=== PATIENT | male | born 1965 | race Caucasian/White ===

== ENCOUNTER 2020-03-08 04:50 | Emergency (ER) | payer BC, SELFPAY ==
[2020-03-08 04:56] VITALS: BP 178/99; PULSE 71; RESP 22; TEMP 36.4; O2SAT 100
--- NOTE | 2020-03-08 05:12 | ED.DIZZY ---
HPI - Dizziness General Chief Complaint: Dizziness Stated Complaint: dizzy Time Seen by Provider: 03/08/20 05:01 History of Present Illness HPI Narrative: Dizziness throguhout the day today. intermittent. Worse with head movement. Better with remaining still with his eyes closed. Associated with nausea and vomiting. No tinnitus, ear pain, muffled hearing, weakness, numbness. Related Data Home Medications Medication Instructions Recorded Confirmed pravastatin 10 mg PO 03/08/20 Allergies Allergy/AdvReac Type Severity Reaction Status Date / Time No Known Allergies Allergy Unknown Unverified 11/08/17 03:33 Review of Systems Review of Systems: All systems reviewed & are unremarkable except as noted in HPI and below Constitutional: Constitutional: Denies chills, Denies fever(s) and Denies weakness ENT: Reports dizziness and Denies sore throat Cardiovascular: Cardiovascular: Denies chest pain Respiratory: Respiratory: Denies dyspnea Gastrointestinal: Gastrointestinal: Denies abdominal pain, Reports nausea and Reports vomiting Neurologic: Reports dizziness, Denies headache(s), Denies numbness and Denies weakness [facility] Social History Social History Gender identity (if verbalized by the patient): Male Exam Const: General: healthy appearing, no acute distress and alert Orientation/consciousness: patient oriented x3 HENMT: Head: normal to inspection Ears: TM's normal bilaterally and Abnormal EAC present Face and sinus: sinuses nontender Eyes: Pupils: Equal, round and reactive pupils present EOM: EOMs intact bilaterally Neck: Neck: normal visual inspection and no lymphadenopathy Chest: Chest palpation & inspection: no tenderness Resp: Effort & Inspection: normal respiratory effort Auscultation: clear to auscultation bilaterally, no rales, no rhonchi and no wheezes Cardio: Jugular venous distension: no JVD Rate: regular rate Rhythm: regular rhythm Heart sounds: no murmurs GI: Inspection: non-distended GI Palp: Yes Soft to palpation and No Tenderness to palpation present (GI) Skin: General skin exam: normal color Neuro: General: patient oriented x3 and moves all extremities Cranial nerves: Yes Nystagmus present horizontal Speech: normal speech Extrem: General: no edema Psych: Appearance: well kempt Affect: normal affect Course Vital Signs Vital signs: Vital Signs Temperature 36.4 C 03/08/20 04:56 Pulse Rate 71 08/07/20 04:56 Respiratory Rate 22 H 03/08/20 04:56 Blood Pressure 178/99 H 03/08/20 04:56 Pulse Oximetry 100 03/08/20 04:56 Temperature 36.9 C 03/08/20 06:40 Pulse Rate 92 03/08/20 06:40 Respiratory Rate 20 03/08/20 06:40 Blood Pressure 159/96 H 03/08/20 06:40 Pulse Oximetry 100 03/08/20 06:40 MDM - Dizziness MDM Narrative Medical decision making narrative: Presentation consistent with peripheral vertigo. Feeling better with symptomatic treatment Medical Records Attestation: I reviewed the patient's medical records. Lab Data Attestation: I reviewed the patient's lab results. Result diagrams: 03/08/20 05:34 03/08/20 05:34 Labs: Lab Results 03/08/20 03/08/20 Range/Units 05:34 05:34 WBC 12.9 H (4.5-10.0) K/mm3 RBC 5.08 (4.6-6.20) M/mm3 Hgb 15.3 (14.0-18.0) g/dL Hct 44.3 (42.0-52.0) % MCV 87.2 (80-100) fl MCH 30.1 (26-34) pg MCHC 34.5 (32-36) g/dl RDW 12.7 (11.5-14.5) % Plt Count 246 (150-375) k/mm3 MPV 9.0 (7.4-10.4) fl Immature Gran % (Auto) 1.3 H (0-0.5) % Neut % (Auto) 59.4 (45.5-73.1) % Lymph % (Auto) 31.1 (18.3-44.2) % Coos % (Auto) 4.9 (2.6-8.5) % Eos % (Auto) 2.6 (0-4.4) % Baso % (Auto) 0.7 (0.2-1.2) % Lymph # (Auto) 4.02 H (0.9-3.2) K/mm3 Coos # (Auto) 0.6 (0.1-0.6) K/mm3 Eos # (Auto) 0.3 (0-0.3) K/mm3 Baso # (Auto) 0.1 (0.0-0.1) K/mm3 Abs Immat Gran (auto
[2020-03-08] MEDS: SODIUM CHLORIDE 0.9% IV 1,000 ML 999 ML IV CONT (05:29)
[2020-03-08] MEDS: ONDANSETRON INJ 4 MG/2 ML VIAL IV PUSH (05:29)
[2020-03-08 05:51] LABS: Basophils Absolute Auto 0.1 K/mm3 (0.0-0.1); Basophils Percent Auto 0.7 % (0.2-1.2); Eosinophils Absolute Auto 0.3 K/mm3 (0-0.3); Eosinophils Percent Auto 2.6 % (0-4.4); Hematocrit 44.3 % (42.0-52.0); Hemoglobin 15.3 g/dL (14.0-18.0); Immature Granulocyte Absolute 0.17 K/mm3 (0.00-0.031); Immature Granulocyte Percent A 1.3 % (0-0.5); Lymphocytes Absolute Auto 4.02 K/mm3 (0.9-3.2); Lymphocytes Percent Auto 31.1 % (18.3-44.2); Mean Corpuscular HGB Conc 34.5 g/dl (32-36); Mean Corpuscular Hemoglobin 30.1 pg (26-34); Mean Corpuscular Volume 87.2 fl (80-100); Monocytes Absolute Auto 0.6 K/mm3 (0.1-0.6); Monocytes Percent Auto 4.9 % (2.6-8.5); Neutrophils Absolute Auto 7.7 K/mm3 (1.3-6.7); Neutrophils Percent Auto 59.4 % (45.5-73.1); Platelet Count Result 246 k/mm3 (150-375); Red Blood Count 5.08 M/mm3 (4.6-6.20); Red Cell Distribution Width 12.7 % (11.5-14.5); White Blood Count 12.9 K/mm3 (4.5-10.0)
[2020-03-08 06:03] LABS: Anion Gap 13.8 mmol/L (7-16); Blood Urea Nitrogen 14 mg/dL (9-20); Calcium 9.2 mg/dL (8.4-10.2); Carbon Dioxide 23 mmol/L (22-30); Chloride 105 mmol/L (98-107); Estimated CRCL calculation 97 ml/min; Estimated Glomerular Filt Rate > 60; Glucose 148 mg/dL (75-110); Potassium 3.8 mmol/L (3.4-5.0); Sodium 138 mmol/L (137-145)
[2020-03-08 06:40] VITALS: BP 159/96; PULSE 92; RESP 20; TEMP 36.9; O2SAT 100
== END 2020-03-08 06:41 | disposition home or self-care (01) ==
PROVIDERS: Emergency Provider Emergency Medicine; PCP Physician Assistant
DX: R42 Dizziness and giddiness (principal)
CPT/HCPCS: 36415; 80048; 85025; 96361; 96374; 96375; 99284; J2405; J3360; J7030

== ENCOUNTER 2020-03-22 08:13 | Outpatient (CLI) | payer BC, SELFPAY ==
--- NOTE | 2020-03-22 | ECHO_ITS ---
Patient Info Name: Chad Moreland Age: 54 years : 1965 Gender: Male Ht: 67 in Wt: 170 lbs BSA: 1.92 m2 HR: 75 bpm BP: 145 / 99 mmHg Heart Rhythm: Sinus Rhythm Technical Quality: Good Exam Date: 03/22/2020 9:05 AM Exam Location: [facility] Patient Status: Outpatient Admit Date: 03/22/2020 Staff Ordering Physician: ColetteJarred PA-C Pigment Pumper: Arturo Diez RDCS Attending Provider: ColetteJarred PA-C Exam Type: CA echo doppler color flow Study Info Indications R01.1 - Cardiac murmur, unspecified Complete two-dimensional, color flow and Doppler transthoracic echocardiogram is performed. History/Risk Factors Murmur. Summary 1. Left ventricular chamber dimension is normal. 2. Ventricular septum is sigmoid shaped. No resting LVOT obstruction. 3. There is moderate asymmetric septal increased left ventricular wall thickness with septal wall at 1.7 cm and posterior wall at 1.2 cm. Consider hypertrophic cardiomyopathy. 4. Left ventricular systolic function is normal, estimated at 65-70%. 5. The left ventricular diastolic function is grade I diastolic dysfunction. 6. E/e' 10 is mildly elevated. 7. Left atrial chamber dimension is mildly enlarged. 8. Mild systolic anterior motion of mitral valve. 9. There is mild mitral valve regurgitation. 10. There is trace pulmonic regurgitation. Left Ventricle E/e' 10 is mildly elevated. Ventricular septum is sigmoid shaped. No resting LVOT obstruction. There is moderate asymmetric septal increased left ventricular wall thickness with septal wall at 1.7 cm and posterior wall at 1.2 cm. Consider hypertrophic cardiomyopathy. Left ventricular chamber dimension is normal. Left ventricular systolic function is normal, estimated at 65-70%. The left ventricular diastolic function is grade I diastolic dysfunction. Right Ventricle Right ventricular chamber dimension is normal. Right ventricular systolic function is normal. Left Atria Left atrial chamber dimension is mildly enlarged. Right Atria Right atrial chamber dimension is normal. Aortic Valve The aortic valve is trileaflet. There is no aortic valve stenosis. There is no aortic valve regurgitation. Pulmonic Valve There is trace pulmonic regurgitation. Mitral Valve Mild systolic anterior motion of mitral valve. There is no mitral valve stenosis. There is mild mitral valve regurgitation. Tricuspid Valve There is no tricuspid valve regurgitation. Pericardium/Pleural There is no pericardial effusion. Inferior Vena Cava Normal inferior vena cava with >50% collapse upon inspiration consistent with normal right atrial pressure, 5 mmHg. Aorta The aortic root size at the sinus of Valsalva is normal. Left Ventricular Outflow Tract Name Value Normal LVOT 2D LVOT Diameter 2.0 cm LVOT Doppler LVOT Peak Gradient 7 mmHg LVOT Mean Gradient 4 mmHg LVOT VTI 33 cm LVOT VTI/AV VTI Ratio 1.1 LVOT Stroke Volume 106 ml
--- NOTE | ~2020-03-22 | US_ITS ---
EXAMINATION: US carotid duplex BI DATE: 03/22/2020 08:58 INDICATION: Carotid bruit. TECHNIQUE: Grayscale, color Doppler, and pulsed Doppler images of the cervical carotid arteries were obtained. The degree of vessel stenosis is placed in one of the following categories: normal, <50%, 5 0-69%, >=70% but less than near-occlusion, near-occlusion, or total occlusion. Note that percent sten osis relative to normal distal artery lumen diameter is indirectly measured from velocity measurement s as described by John, et al. Radiology 2003; 229:340-346. COMPARISON: None. FINDINGS: RIGHT: The right common carotid artery (CCA) peak systolic velocity (PSV) is 87 cm/s. The right internal car otid artery (ICA) PSV is 87 cm/s. The right ICA end-diastolic velocity (EDV) is 33 cm/s. The right IC A/CCA PSV ratio is 1.0. Grayscale and color Doppler images yield an estimate of <50% diameter reducti on from plaque in the ICA. There is antegrade flow in the right vertebral artery. LEFT: The left CCA PSV is 94 cm/s. The left ICA PSV is 71 cm/s. The left ICA EDV is 26 cm/s. The left ICA/C CA PSV ratio is 0.8. Grayscale and color Doppler images yield an estimate of <50% diameter reduction from plaque in the ICA. There is antegrade flow in the left vertebral artery. IMPRESSION: 1. <50% stenosis in the right internal carotid artery. 2. <50% stenosis in the left internal carotid artery. Reviewed, dictated and finalized at location A.
== END 2020-03-22 08:14 | disposition home or self-care (01) ==
LOC: ANHCARD 08:22
PROVIDERS: PCP Physician Assistant; Visit Provider Physician Assistant
DX: R01.1 Cardiac murmur, unspecified (principal); I65.23 Occlusion and stenosis of bilateral carotid arteries
CPT/HCPCS: 93306; 93880

== ENCOUNTER 2022-02-16 01:21 | Day surgery (SDC) | payer BC, SELFPAY ==
[2022-01-29 12:32] VITALS: BMI 27.6
[2022-02-16 08:10] VITALS: BP 144/92; PULSE 85; RESP 18; TEMP 36.5; O2SAT 98
[2022-02-16] MEDS: LACTATED RINGERS 1,000 ML 150 ML IV CONT (08:20)
--- NOTE | 2022-02-16 08:35 | P.PNAN_ITS ---
Anes - Initial Pre Proc Eval Procedure: Operation Date: 02/16/22 09:00 Proposed Procedures p Screening Colonoscopy - Bharath Heredia MD Date/Time: 02/16/22 08:35 Surgeon: Bharath Heredia MD Pre Op Diagnosis: neoplasm screening Patient Data Age: 56 Gender: M Height: 1.7 m Weight: 81.7 kg Last Vital Signs Temp 97.7 F 02/16/22 08:10 Pulse 85 02/16/22 08:10 Resp 18 02/16/22 08:10 BP 144/92 H 02/16/22 08:10 Pulse Ox 98 02/16/22 08:10 O2 Del Method Room Air 02/16/22 08:10 Allergies Allergy/AdvReac Type Severity Reaction Status Date / Time No Known Allergies Allergy Unknown Verified 02/16/22 08:08 Home Medications Medication Instructions Recorded Confirmed Type pravastatin 10 mg tablet 10 mg PO DAILY 03/08/20 01/29/22 History amlodipine 5 mg tablet 1 tablet PO DAILY 01/29/22 01/29/22 History Patient hx anesthesia problems: none Family hx anesthesia problems: none Results Review: All pre-operative results and documents have been reviewed as part of the pre- operative evaluation. [facility] Past Medical History Medical History (Updated 02/16/22 @ 08:37 by Bharath Heredia MD) Colon cancer screening Social History Social History Smoking status: Never smoker Alcohol intake: current Alcohol use details: socially Substance use: never Substance use type: does not use Living arrangements: with family Gender identity (if verbalized by the patient): Male Spiritual care concerns: No Anes - Eval Final PreProcedure Day of Procedure 02/16/22 08:35 Patient weight: normal Heart: regular rate and rhythm Lungs: clear to auscultation Neurological: alert and oriented Last oral intake: >/= 8 hours ASA classification: II Emergent: no Anesthetic plan: proceed Anesthesia type and monitoring: general GIVS and standard monitoring Results Review: All pre-operative results and documents have been reviewed as part of the pre- operative evaluation. Informed Consent: The patient's anesthetic plan and its attendant risks and benefits were discussed with the patient/family/POA. Questions were solicited and answers provided to the satisfaction of the patient/family/POA.
--- NOTE | 2022-02-16 08:37 | PM.HPGS ---
History of Present Illness History of Present Illness Consent: Risks, benefits, and alternatives have been discussed and questions answered. Patient agrees to proceed with procedure. Chief complaint: neoplasm screening Narrative: Chad Moreland is a 56 year old male here for screening colonoscopy, last one about 6-7 years ago Review of Systems Constitutional: Constitutional: Denies headache(s) and Denies weakness Eyes: Eyes: Denies blurry vision ENT: Reports Normal hearing present, Denies headache(s) and Denies neck pain Cardiovascular: Cardiovascular: Denies chest pain and Denies dyspnea Respiratory: Respiratory: Denies dyspnea Gastrointestinal: Gastrointestinal: Reports no additional gastrointestinal complaints Genitourinary: Genitourinary: Denies dysuria Musculoskeletal: Musculoskeletal: Denies neck pain Integumentary/Breasts: Skin/Breast: Denies dry skin Neurologic: Reports Normal hearing present, Denies headache(s) and Denies weakness Psychiatric: Psychiatric: Denies anxiety Endocrine: Endocrine: Denies change in body appearance Hematologic/Lymphatic: Hematologic/Lymphatic: Denies easy bleeding Allergic/Immunologic: Allergic/Immunologic: Denies urticaria PMF Past Medical History Medical History (Updated 02/16/22 @ 08:37 by Bharath Heredia MD) Colon cancer screening Social History Social History Smoking status: Never smoker Alcohol intake: current Alcohol use details: socially Substance use: never Substance use type: does not use Living arrangements: with family Gender identity (if verbalized by the patient): Male Spiritual care concerns: No Meds Home Medications and Allergies Home Medications Medication Instructions Recorded Confirmed Type pravastatin 10 mg tablet 10 mg PO DAILY 03/08/20 01/29/22 History amlodipine 5 mg tablet 1 tablet PO DAILY 01/29/22 01/29/22 History Allergies Allergy/AdvReac Type Severity Reaction Status Date / Time No Known Allergies Allergy Unknown Verified 02/16/22 08:08 Vital Signs Vital Signs - 24 hr 02/16/22 08:10 Temperature 97.7 F Pulse Rate 85 Respiratory Rate 18 Blood Pressure 144/92 H Pulse Oximetry 98 Oxygen Delivery Room Air Exam Const: General: comfortable and no acute distress HENMT: General nose exam: Normal nares present Eyes: General: appearance normal, both eyes and all related structures Neck: Neck: no JVD Resp: Auscultation: clear to auscultation bilaterally Cardio: Rate: regular rate Rhythm: regular rhythm GI: Inspection: non-distended GI Palp: Yes Soft to palpation Skin: General skin exam: normal color Neuro: General: gait normal Speech: normal speech Extrem: General: normal to inspection Psych: Mental Status: mental status grossly normal Assessment and Plan Assessment and plan (1) Colon cancer screening: Code(s): Z12.11 - Encounter for screening for malignant neoplasm of colon Status: Acute Assessment and Plan: colonoscopy
[2022-02-16 09:02] VITALS: BP 138/96; PULSE 71; RESP 25; O2SAT 93
[2022-02-16 09:12] VITALS: BP 137/82; PULSE 76; RESP 19; O2SAT 95
[2022-02-16 09:22] VITALS: BP 126/86; PULSE 77; RESP 16; O2SAT 96
== END 2022-02-16 09:30 | disposition home or self-care (01) ==
PROVIDERS: PCP Physician Assistant; Visit Provider Internal Medicine Gastroenterology
PROC: 0DJD8ZZ Inspection of Lower Intestinal Tract, Via Natural or Artificial Opening Endoscopic (ICD-10-PCS; CPT 45378; principal; 2022-02-16 09:00)
DX: Z12.11 Encounter for screening for malignant neoplasm of colon (principal); K57.30 Diverticulosis of large intestine without perforation or abscess without bleeding; K64.8 Other hemorrhoids
CPT/HCPCS: 99199; 45378; J2704; J7120

== ENCOUNTER 2025-05-30 09:27 | Outpatient (CLI) | payer BC, SELFPAY ==
--- NOTE | 2025-05-30 | ECG_ITS ---
Test Date: 2025-05-30 09:59:21 Measurements Intervals [place] Rate: 89 P: 50 [place]: 178 QRS: -20 QRSD: 106 T: 28 QT: 338 QTc: 412 Interpretive Statements SINUS RHYTHM DELAYED PRECORDIAL R/S TRANSITION POSSIBLE LEFT VENTRICULAR HYPERTROPHY MINIMAL Q WAVES- HIGH LATERAL LEADS BASELINE ARTIFACT- I, II, III, AVR, AVL, AVF BORDERLINE ECG No previous ECG available for comparison Electronically Signed On 05-30-2025 10:33:57 CDT by Sudhakar Swain D.O.
--- OUTSIDE RECORDS SUMMARY | 2025-05-30 10:26 | XMS_ITS | Encounter Summary ---
Author Organization [facility] Address [address] [place] [address] Phone Care Team Providers Care Air Cargo Ground Crew Supervisor Name Role Phone MaurisiobrianLenore Primary Care Pr ovider Heavenly Barnhart RN Unavailable UnavailLeanne Lopez Unavailable Unavailable Mariaelena Moore RN Unavailable Unavailable Reason for Referral * Cardiology (Routine) - Authorized Specialty Diagnoses / Procedures Referred By Contac t Referred To Contact Diagnoses Cardiomyopathy, hypertrophic (HCC) Procedures ECG 12 lead Ger Trejo MD PhD [id number] [address] Phone: tel: fax: External Order Referral ID Status Reason Start Date Expiration Date V isits Requested Visits Authorized [id number] Authorized 05/29/2025 06/28/2026 1 1 Encounter Details Date Type Department Care Team (Late st Contact Info) Description 05/28/2025 Telephone [facility] Medicine Cardiology [facility] Advanced Medicine [address]th [place] [address] [place] [address] Ger Trejo MD PhD [address] [facility] [address] [place], [place] [id number] Social History Tobacco Use Types Packs/Day Years Used Date Smoking Tobacco: Never Smokeless Tobacco: Never Alcohol Use Standard Drinks/Week Comments Yes 0 (1 standard drink = 0.6 oz pur e alcohol) occ Personal Safety Answer Date Recorded Have you ever been in or are you currently in a harmful physical or emotional relationship or is someone making you feel afraid or unsafe? 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 Trejo would like him to obtain walk-in EKG locally to evaluate cardiac rhythm. Patient agreeable to having EKG performed locally at [facility]. Spoke with [facility] who state that patient can obtain EKG M-F 8:30-3:30. Patient should enter at [facility] entrance and proceed to registration. Order faxed to [phone], per request and confirmation received. Explained above to patient and stated we will contact him once results are reviewed. Patient verbalized understanding and agreeable to plan. * Telephone Encounter - Leanne Julio - 05/29/2025 1:59 PM CDT Received call from pt needing to speak with nurse coordinator regarding: Returning call Patient needs a return call from the nurse coordinator. * Telephone Encounter - Heavenly Barnhart RN - 05/28/2025 12:42 PM CDT Spoke with patient who states that for approximately 2 weeks he has been experiencing near constantdizziness and fatigue. He states that this dizziness is not as severe as episodes of vertigo he hashad in the past, but still bothersome. BP running 140-150s/80-90s and HR 70s. He is taking all medications as prescribed including Camzyos 10 daily, metoprolol 50 daily and amlodipine 5 daily, he states that he has been maintaining adequate hydration, and his next Camzyos echo is due in August 2025. Explained we would discuss with Dr. Trejo and return call with recommendations. Patient verbalized understanding and agreeable to plan. * Telephone Encounter - Rowan Bob - 05/28/2025 11:07 AM CDT Pt returning call please call back * Telephone Encounter - Heavenly Barnhart RN - 05/28/2025 10:58 AM CDT LVM for patient requesting return call to discuss dizziness. * Telephone Encounter - Venita Matos - 05/28/2025 9:38 AM CDT Maya Pt having extreme dizziness. Pls call. documented in this encounter Plan of Treatment Scheduled Orders Name Type Priority Associated Diagnoses Orde r Schedule ECG 12 lead ECG Routine Cardiomyopathy, hypertrophic (HCC) 1 Occurrences starting 05/29/2025 until 05/29/2026 documented as of this encounter Visit Diagnoses Diagnosis Cardiomyopathy, hypertrophic (HCC)- Primary documented in this encounter Care Teams Air Cargo Ground Crew Supervisor Relationship Specialty Start Date End Date Lenore Alvarenga PA PCP - General Physician Behaviorist 01/27/17 Heavenly Barnhart, certified medical aide Failure Coordinator 11/24/23 Leanne Julio Primary Blasting Contract Miner 12/29/24 Mariaelena Moore RN Forming Machine Upkeep Mechanic Helper 12/29/24 documented as of this encounter
--- OUTSIDE RECORDS SUMMARY | 2025-05-30 10:26 | XMS_ITS | Clinical Summary ---
Author Organization [facility] [place] [address] Address [address] [place] [address] Care Team Providers Care Deputy Director Of Finance Name Role Phone Gagemartín Lenore RIOS Primary Care Pr ovider Heavenly Barnhart RN Unavailable Unavaila Leanne Vick Unavailable Unavailable Mariaelena Moore RN Unavailable Unavailable Allergies No known active allergies Medications amLODIPine (NORVASC) 5 mg tablet amlodipine 5 mg tablet TAKE 1 TABLET BY MOUTH ONCE DAILY Active aspirin 81 mg enteric coated tablet daily Active multivit-min/folic /vit K/lycop (ONE-A-DAY MEN'S 50 PLUS ORAL) Take by mouth Ac tive docosahexaenoic acid/epa (FISH OIL ORAL) Take by mouth Active metoprolol XL (TOPROL-XL) 50 mg extended release tabletIndications: Cardiomyopathy, hypertrophic (HCC),Essential hypertension Take 1 tablet by mouth once daily 90 tablet 3 Active atorvastatin (LIPITOR) 40 mg tabletIndications: Mixed hyperlipidemia Take 1 tablet by mouth once daily 90 tablet 4 Active mavacamten (CAMZYOS) 10 mg capsule Take 1 capsule (10 mg total) by mouth daily 30 capsule 11 5 Active Active Problems Problem Noted Date Diagnosed Date Tremor 09/29/2020 Cardiomyopathy, hypertrophic 04/01/2020 Essential hypertension 04/01/2020 Family history of sudden cardiac in father 04/01/2020 Family history of early CAD 04/01/2020 Mixed hyperlipidemia 04/01/2020 Encounters Date Type Department Care Team Description 05/28/[address] [facility] Medicine Cardiology [address] [facility] Advanced Medicine [address]th [place] [address] [place] [address] Ger Trejo MD PhD from Last 3 Months Medical History Medical History Date Comments Hypertension Heart murmur Hyperlipidemia Hypertrophic cardiomegaly Vertigo Family History Medical History Relation Name Comments Diabetes Brother 1 Sharif CAD, [place], stents Brother 2 Malik In his 50's Coronary artery disease Father Sudden Cardiac Father ag e 42 Leukemia Mother age 83 Hard life, drugs, lupus Sister 1 Tosha age 61, COD uncertain CABG Sister 2 Candis Vizcaino Around 60 y.o. 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 Gender Identity Not on file Sexual Orientation Not on file Obstetrics History Last Filed Vital Signs Vital Sign Reading Time Taken Comments Blood Pressure 131/74 11/22/2024 11:46 AM CDT Pulse 71 11/22/2024 11:46 AM CDT Temperature 36.9 C (98.4 F) 04/30/2020 8:04 AM CDT Respiratory Rate 18 04/01/2020 11:35 AM CDT Oxygen Saturation 93% 11/22/2024 11:46 AM CDT Inhaled Oxygen Concentration - - Weight 82.1 kg (181 lb) 11/22/2024 11:46 AM CDT Height 170.2 cm (5' 7) 11/22/2024 11:46 AM CDT Body Mass Index 28.35 11/22/2024 11:46 AM CDT Plan of Treatment Health Maintenance Due Date Last Done Comments Colon Cancer Screening-Colonoscopy 1965 Depression Screening 1965 Hepatitis C Screening 1965 Prostate Cancer Screening-PSA 1965 DTaP/Tdap/Td Vaccine (1 - Tdap) 1976 Hepatitis B Screening 11/10/1983 Regular Well Visit/Exam 18-64 11/10/1983 Zoster Vaccine (1 of 2) 11/10/2015 Influenza Vaccine (#1) 2025 Pneumococcal vaccine <65 Aged Out No longer eligible based on patient's age to complete this topic Insurance [facility] FED[employer]AL [facility] [employer] [facility] [employer] Care Teams Deputy Director Of Finance Relationship Specialty Start Date End Date Lenore Alvarenga PA PCP - General Physician Picture Painter 01/27/17 Heavenly Barnhart, switchboard receptionist Failure Coordinator 11/24/23 Leanne Julio Primary Warp Dyeing Tender 12/29/24 Mariaelena Moore, body trimmer upholstererCinder Crusher Operator 12/29/24
== END 2025-05-30 09:28 | disposition home or self-care (01) ==
LOC: ANHCARD 09:32
PROVIDERS: PCP Physician Assistant; Visit Provider Internal Medicine
DX: I42.2 Other hypertrophic cardiomyopathy (principal); R94.31 Abnormal electrocardiogram [ECG] [EKG]
CPT/HCPCS: 93005